=== PATIENT | female | born 1965 | race Caucasian/White ===

== ENCOUNTER 2017-08-08 11:42 | Emergency (ER) | payer MEDICAID ==
[~2017-08-08] VITALS: Ht 177.8 cm; Wt 75.0 kg
[2017-08-08] MEDS ORDERED: IBUPROFEN 600MG TABLET PO ONE (14:45)
[2017-08-08 15:17] LABS: BASOPHILS % 0.8 % (0.0-2.0); EOSINOPHILS % 1.5 % (0.0-5.0); HEMATOCRIT. 46.5 % (36.0-48.0); HEMOGLOBIN. 15.6 g/dL (12.0-16.0); LYMPHOCYTES % 32.2 % (20.0-50.0); MEAN CORPUSCULAR HEMOGLOBIN 33.9 pg (28.0-32.0); MONOCYTES % 4.5 % (2.0-8.0); RED CELL DISTRIBUTION WIDTH 12.9 % (11.6-14.6)
[2017-08-08 15:22] LABS: PROTHROMBIN TIME 10.5 sec (9.4-11.6)
[2017-08-08 15:32] LABS: MEAN PLATELET VOLUME 9.3 fl (7.4-10.4); PLATELET 286 x1000/uL (130-400)
[2017-08-08 15:35] LABS: CARBON DIOXIDE 23 mEq/L (21-32); CHLORIDE 103 mEq/L (98-107)
[2017-08-08 19:00] VITALS: BP 125/55
== END 2017-08-08 19:08 | disposition home or self-care (01) ==
LOC: ER 12:25
DX: N93.9 Abnormal uterine and vaginal bleeding, unspecified (principal); R10.9 Unspecified abdominal pain; I10 Essential (primary) hypertension; F17.200 Nicotine dependence, unspecified, uncomplicated; Z88.1 Allergy status to other antibiotic agents
CPT/HCPCS: 36415; 76830; 76856; 80053; 81025; 85025; 85610; 86850; 86900; 86901; 99285; Z7610